=== PATIENT | male | born 1955 | race Caucasian/White ===

== ENCOUNTER 2019-07-01 07:14 | Emergency (ER) | payer BC ==
[2019-07-01 07:30] VITALS: BP 122/63
--- NOTE | 2019-07-01 07:47 | UC ---
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 Negative: Pleuritic Chest Pain, Wheezing, Hemoptysis, Dizziness, Calf Pain, Calf Swelling, Edema, URI, Sinus Discomfort - Allergies/Home Medications Allergies/Adverse Reactions: Allergies Allergy/AdvReac Type Severity Reaction Status Date / Time No Known Allergies Allergy Verified 07/01/19 07:30 Home Medications: Home Medications Ibuprofen TAB* [Advil TAB*] 200 mg PO ONCE PRN 07/01/19 [History Confirmed 07/01] PMH/Surg Hx/FS Hx/Imm Hx Previously Healthy: Yes Respiratory History: Pneumonia - X1 - Surgical History Surgical History: Yes Surgery Procedure, Year, and Place: left hip. vein surgery in legs - Family History Known Family History: Negative: Cardiac Disease, Hypertension, Diabetes Family History: Mom age 93, dad still living 96 - Social History Alcohol Use: None Substance Use Type: None Smoking Status (MU): Never Smoked Tobacco Review of Systems All Other Systems Reviewed And Are Negative: Yes Constitutional: Positive: Fever, Chills, Fatigue Skin: Positive: Negative Eyes: Positive: Negative ENT: Positive: Sinus Congestion Respiratory: Positive: Shortness Of Breath - minimal, Cough Cardiovascular: Positive: Negative Gastrointestinal: Positive: Negative Genitourinary: Positive: Negative Motor: Positive: Negative Neurovascular: Positive: Negative Musculoskeletal: Positive: Negative Neurological: Positive: Negative Psychological: Positive: Negative Physical Exam Triage Information Reviewed: Yes Appearance: Well-Appearing, No Pain Distress, Well-Nourished Vital Signs: Initial Vital Signs Temp 97.9 F 07/01/19 07:26 Pulse 71 07/01/19 07:26 Resp 15 07/01/19 07:26 BP 122/63 07/01/19 07:26 Pulse Ox 96 07/01/19 07:26 Vital Signs Reviewed: Yes Eyes: Positive: Conjunctiva Clear ENT: Positive: Hearing grossly normal, Pharynx normal, Nasal congestion, TMs normal, Hoarse voice, Uvula midline. Negative: Nasal drainage, Tonsillar swelling, Tonsillar exudate, Trismus, Muffled voice, Sinus tenderness Dental Exam: Normal Neck: Positive: Supple, Nontender, No Lymphadenopathy Respiratory: Positive: Lungs clear, Normal breath sounds, No respiratory distress, No accessory muscle use, Wheezing - slight wheeze forced expiration Cardiovascular: Positive: RRR, No Murmur Abdomen Description: Positive: Nontender Bowel Sounds: Positive: Present Musculoskeletal: Positive: ROM Intact, No Edema Neurological: Positive: Alert Psychological Exam: Normal Skin Exam: Normal Diagnostics - Radiology No standard instances Radiology Interpretation Completed By: Radiologist Summary of Radiographic Findings: NAD Respiratory Course/Dx - Course Course Of Treatment: will cover for psittacosis - Differential Dx/Diagnosis Provider Diagnosis: Acute bronchitis Discharge - Sign-Out/Discharge Documenting (check all that apply): Patient Departure All imaging exams completed and their final reports reviewed: Yes - Discharge Plan Condition: Stable Disposition: HOME Prescriptions: DOXYcycline CAP(*) [DOXYcycline 100MG CAP(*)] 100 mg PO BID #14 cap Patient Education Materials: Acute Bronchitis (ED) Referrals: No Primary Care Phys,NOPCP [Primary Care Provider] - [facility] [place] [facility] [Outside] - 1 Week Additional Instructions: see your MD in one week for recheck you may need pulmonary function tests - Billing Disposition and Condition Condition: STABLE Disposition: Home
== END 2019-07-01 08:42 | disposition home or self-care (01) ==
LOC: UCEAST 07:14
DX: J20.9 Acute bronchitis, unspecified (principal)
CPT/HCPCS: 71046; 99202; G0463

== ENCOUNTER 2024-06-04 06:37 | Observation (INO) ==
[~2024-06-04 06:37] MED LIST: Metoclopramide 5 MG/ML VIAL (10 mg) IV PRN; NS 0.45% 1000 ml BAG 1,000 ML IV SCH; Naloxone 0.4 mg VIAL 0.4 mg/ml 1 ml VIAL IV PRN; Ondansetron 4 mg VIAL 2 MG/ML 2 ml VIAL IV PRN; fentaNYL 100 mcg/2 ml 50 MCG/ML VIAL IV PRN
[2024-06-04] MEDS ORDERED: Tranexamic Acid 1 GM/100ML BAG 2,000 MG/200 ML BAG IV ONE (06:59)
[2024-06-04] MEDS ORDERED: ceFAZolin 2 GM in NS PREMIX 2 GM/100 ML BAG IVPB ONE (07:00)
[2024-06-04] MEDS: Buffered Lidocaine 1% SYRIN 1 ml INTRADERM ONE (07:07)
[2024-06-04] MEDS: Lactated Ringers 1000 ml BAG 1,000 ML IV SCH ×2 (07:07→14:00)
[2024-06-04] MEDS: Scopolamine 1 mg/72hr PATCH TRANSDERM ONE (07:07)
[2024-06-04] MEDS ORDERED: ROPIVACAINE 5 MG/ML 30 ML BTL (0.5%) ONE (07:28)
[2024-06-04] MEDS ORDERED: Midazolam 2 mg/2 ml VIAL 1 mg/ml 2 ml VIAL (2 mg) ONE (08:11)
[2024-06-04] MEDS ORDERED: Rocuronium 50 mg VIAL 10 mg/ml 5 ml VIAL (50 mg) ONE (08:11)
[2024-06-04] MEDS ORDERED: fentaNYL 250 mcg/5 ml 50 MCG/ML 5 ml VIAL (250 MCG) ONE (08:12)
[2024-06-04] MEDS ORDERED: Lidocaine 2% PF 5 ML VIAL ONE (08:13)
[2024-06-04] MEDS ORDERED: Propofol 10 MG/ML 20 ML BTL ONE (08:14)
[2024-06-04] MEDS ORDERED: HYDROmorphone 0.5 MG/0.5 ML SYRINGE ONE (09:13)
[2024-06-04 10:56] LABS: Rapid COVID-19 Molecular Undetected (Undetected)
[2024-06-04] MEDS ORDERED: Calcium Carb (TUMS) 500 mg CHEW TAB PO PRN (11:25)
[2024-06-04] MEDS ORDERED: Magnesium Hydroxide LIQ 30 ML UDC PO PRN (11:25)
[2024-06-04] MEDS ORDERED: Lactulose 30 ml UDC PO PRN (11:25)
[2024-06-04] MEDS ORDERED: Morphine 2 MG/ML SYRINGE IV PRN (11:25)
[2024-06-04] MEDS ORDERED: Ondansetron ODT 4 mg TAB 4 MG TAB PO PRN (11:25)
[2024-06-04] MEDS: Ondansetron 4 mg VIAL 2 MG/ML 2 ml VIAL IV PRN (13:59)
[2024-06-04] MEDS: Acetaminophen IV 1 GM/100ML 1,000 MG/100 ML BAG IV ONE (14:00)
[2024-06-04] MEDS: ceFAZolin 2 GM in NS PREMIX 2 GM/100 ML BAG IVPB SCH (16:56)
[2024-06-04] MEDS: Magnesium Hydroxide LIQ 30 ML UDC PO SCH (22:11)
[2024-06-05 06:01] LABS: Hematocrit 34.4 % (38-53); Hemoglobin 11.9 g/dL (13.2-16.3); Mean Platelet Volume 6.7 fL (7.5-11.2); Platelet Count 222 10^3/uL (150-450)
[2024-06-05 06:29] VITALS: BP 104/59
[2024-06-05 06:50] LABS: Calcium 7.7 mg/dL (8.6-10.3); Creatinine, Serum 0.8 mg/dL (0.67-1.17); Potassium 4.3 mmol/L (3.5-5.0); eGFR CKD-EPI 94.6 (>60)
[2024-06-05] MEDS: Vitamin THERAPEUTIC TAB PO SCH (08:15)
== END 2024-06-05 10:43 | disposition home or self-care (01) ==
LOC: SSU 06:37 → OR 06:37
PROVIDERS: ADMIT Orthopaedic Surgery Adult Reconstructive Orthopaedic Surgery; ATTEND Orthopaedic Surgery Adult Reconstructive Orthopaedic Surgery